=== PATIENT | female | born 1940 | race Caucasian/White ===

== ENCOUNTER 2018-03-21 13:50 | Emergency (ER) | payer BC ==
[~2018-03-21] VITALS: Ht 170.2 cm; Wt 80.9 kg
[2018-03-21 13:54] VITALS: TEMP 98.6
[2018-03-21] MEDS ORDERED: ELIQUIS 5MG PO (14:03)
[2018-03-21] MEDS ORDERED: LASIX 40MG TABL40 MG PO (14:03)
[2018-03-21] MEDS ORDERED: TIKOSYN0.5 MG PO (14:04)
[2018-03-21] MEDS ORDERED: MICRO-K 10 EXT10 MEQ PO (14:04)
[2018-03-21] MEDS ORDERED: DIOVAN320 MG PO (14:04)
[2018-03-21] MEDS ORDERED: LIPITOR 10MG10 MG PO (14:05)
[2018-03-21 14:31] LABS: BASO % 0.6 % (0.0-2.0); EOS # 0.5 (0.0-0.7); EOS % 9.9 % (0-4.0); GRAN # 2.5 (1.4-6.5); GRAN % 52.2 % (42.2-75.2); HEMATOCRIT 37.1 % (37.0-47.0); HEMOGLOBIN 12.1 g/dl (12.5-16.0); LYMPH # 1.2 (1.2-3.4); LYMPH % 24.8 % (20.0-51.0); MEAN CELL VOLUME 86 fl (80.0-100.0); MEAN CORPUSCULAR HEMOGLOBIN 28 pg (27.0-31.0); MEAN CORPUSCULAR HGB CONC 33 g/dl (33.0-37.0); MEAN PLATELET VOLUME 9.6 fl (7.4-10.4); MONO # 0.6 (0.1-0.6); MONO % 12.3 % (1.7-9.3); PLATELET COUNT 155 K/mm3 (130-400); RED BLOOD COUNT 4.32 M/mm3 (4.10-5.30)
[2018-03-21 14:42] LABS: ALANINE AMINOTRANSFERASE 31 U/L (9-52); ALBUMIN 3.5 gm/dL (3.5-5.0); ALKALINE PHOSPHATASE 78 U/L (50-136); ANION GAP 12 mmol/L (7-16); AST,SGOT 25 U/L (15-37); BILIRUBIN,TOTAL 0.6 mg/dL (0.0-1.0); BLOOD UREA NITROGEN 19 mg/dL (7-17); CALCIUM 9.2 mg/dL (8.4-10.2); CARBON DIOXIDE 23 mmol/L (22-30); CHLORIDE 106 mmol/L (98-107); CREATININE, serum 0.66 mg/dL (0.52-1.25); GLUCOSE 92 mg/dL (74-106); SODIUM 141 mmol/L (137-145); TOTAL PROTEIN 6.4 gm/dL (6.4-8.2)
[2018-03-21 14:45] LABS: INR 1.2 (0.8-3.0); PROTHROMBIN TIME 13.7 SECONDS (9.7-12.8)
[2018-03-21 14:55] LABS: TROPONIN-I < 0.012 ng/mL (0.000-0.034)
[2018-03-21 15:26] VITALS: BP 140/79; PULSE 67
== END 2018-03-21 15:29 | disposition home or self-care (01) ==
LOC: COL.ER 13:50
PROVIDERS: Emergency Medicine
DX: M25.074 Hemarthrosis, right foot (principal); M54.5 Low back pain; I48.91 Unspecified atrial fibrillation; Z86.73 Personal history of transient ischemic attack (TIA), and cerebral infarction without residual deficits; I10 Essential (primary) hypertension; Z79.01 Long term (current) use of anticoagulants; E78.00 Pure hypercholesterolemia, unspecified